=== PATIENT | female | born 1955 | race Caucasian/White ===

== ENCOUNTER → 2017-03-20 | Outpatient (CLI) | payer OTHER ==
[~2017-03-20] MED LIST: ALBUTEROL17 GM INH; BP MED; INHALER; METFORMIN
--- NOTE | ~2017-03-20 | US98 ---
[facility] A Service of [facility] RADIOLOGY TEXT RESULTS PATIENT: NIKKI MUÑOZ LOCATION: [place] : 59 UNIT #: [id number] AGE: [address]: Roxie Aceves MD SEX: F ORDER DR: [id number] [address] [address] [id number] O MR#: [id number] Acc #: [id number] NAME: NIKKI MUÑOZ. : 1955 SEX: F STUDY DATE/TIME: 03/20/2017 13:08 UNIT: [facility] ROOM: STUDY DESCRIPTION: US Pelvic Non-OB Complete Attending Physician: Roxie Aceves M.D. Referring Physician: Roxie Aceves M.D. Ordering Physician: Roxie Aceves M.D. Primary Care Physician: Roxie Aceves M.D. MEDICAL IMAGING REPORT This report is preliminary unless electronic signature is present. EXAM US pelvic non-OB complete INDICATIONS Left adnexal fullness; this has been present for over a year and she also reports pelvic pain for 1 year. She had a prior pelvic ultrasound in June 2014, which did not show any abnormality. TECHNIQUE Valencia-scale, color Doppler and spectral Doppler waveform analysis was performed through the patient's pelvis, both transabdominally and transvaginally. FINDINGS Exam is significantly degraded by overlying bowel gas on both transabdominal and transvaginal images. Neither ovary can be identified. I do think the uterus is heterogeneous in echotexture of uncertain clinical significance. No focal masses are seen. IMPRESSION Neither ovary can be identified on either transabdominal or transvaginal images. Given history of persistent left adnexal fullness and pelvic pain, I would suggest further evaluation with CT of the abdomen and pelvis preferably with oral and IV contrast. Dictated by... Nicole Sheikh M.D. THIS IS AN ELECTRONICALLY VERIFIED REPORT Nicole Sheikh M.D. at 03/21/2017 4:39 PM AFF/psc [facility] A Service of [facility] & [facility] RADIOLOGY TEXT RESULTS PATIENT: NIKKI MUÑOZ LOCATION: [facility] #: [id number] : 59 UNIT #: [id number] AGE: [address]: Roxie Aceves MD SEX: F ORDER DR: TD: 03/20/2017 23:24 JOB #: [id number] MEDICAL IMAGING REPORT Page 1 of 1
== END | disposition home or self-care (01) ==
LOC: SGUS 12:43
DX: N85.2 Hypertrophy of uterus (principal)
CPT/HCPCS: 76830; 76856